=== PATIENT | male | born 1960 | race American Indian/Alaskan Native ===

== ENCOUNTER 2023-10-15 19:53 | Inpatient (IN) | payer MEDICARE ==
--- NOTE | 2023-10-15 21:30 | ED ---
Abdominal Pain HPI - General Chief Complaint: Abdominal Pain Stated Complaint: abd pain Time Seen by Provider: 10/15/23 20:08 Source: patient, family Mode of arrival: wheelchair Limitations: no limitations - History of Present Illness Initial Comments: 63-year-old male with medical history significant for disease status post 5 vessel CABG, hypertension, robotic hiatal hernia cancer currently in remission, presenting to the ED with a chief complaint of abdominal pain. Patient was initially seen 3 days ago at [facility] in [place]. Patient is from [place]. He was there for a [place] hockey tournament. During the ride there he was started to experience some nausea and belching. On 05/27 he reports he was celebrating with his family and drank approximately 15 beers. The following morning on 10/13/2023 woke up with abdominal pain in the epigastric region with some associated nausea and vomiting. Had no changes in bowel habits at this time. No chest pain, shortness of breath, fever, or chills at this time as well. At this time laboratory studies were significant for an elevated lipase at 2655, AST of 449, ALT of 149, and ALP of 138. He did also have an elevated creatinine at 126 however his estimated GFR was 55. White blood cell count was elevated at 12.3. Patient had CT scan showing peripancreatic stranding and fluid likely related to acute interstitial edematous pancreatitis. CT also revealed gallbladder distention with mild gallbladder wall thickening favored to be reactive. Ultrasound at this time had findings suggestive of acute cholecystitis with dilation of the common bile duct. There is no definitive choledocholithiasis within the visualized common bile duct. Patient was admitted and was to have an MRCP however patient did have a medical clip within his abdomen and was unable to determine at this time whether or not this clip was compatible with MRCP therefore this was held. Due to patient being from [place], requested discharge so that he may have evaluation in the [place] where his insurance would provide coverage. At this time patient reports continued abdominal pain. He does not report any worsening of this. No nausea or vomiting. He has been on a clear liquid diet. Denies fever or chills. No chest pain or shortness of breath. No other complaints at this time. - Related Data Allergies Allergy/AdvReac Type Severity Reaction Status Date / Time No Known Allergies Allergy Verified 10/15/23 21:53 Review of Systems ROS Statement: Those systems with pertinent positive or pertinent negative responses have been documented in the HPI. ROS Other: All systems not noted in ROS Statement are negative. Past Medical History Past Medical History: Cancer, Hypertension Additional Past Medical History / Comment(s): prostate cancer, hiatal hernia History of Any Multi-Drug Resistant Organisms: None Reported Past Surgical History: Prostate Surgery Additional Past Surgical History / Comment(s): bipass Smoking Status: Never smoker Past Alcohol Use History: None Reported Past Drug Use History: None Reported General Exam Limitations: no limitations General appearance: alert, in no apparent distress ENT exam: Present: mucous membranes moist Neck exam: Present: normal inspection Respiratory exam: Present: normal lung sounds bilaterally Cardiovascular Exam: Present: regular rate, normal rhythm GI/Abdominal exam: Present: soft (Epigastric tenderness to palpation. No rebound guarding or rigidity. No May Strange sign. No [place] sign.) Back exam: Present: normal inspection Neurological exam: Present: alert, oriented X3 Skin exam: Present: warm, dry Course Vital Signs 10/15/23 10/15/23 10/15/23 19:56 22:07 23:00 Temperature 97.8 F 98.1 F Pulse Rate 68 78 83 Respiratory 18 16 18 Rate Blood Pressure 146/83 164/92 139/94 O2 Sat by Pulse 98 95 95 Oximetry Medical Decision Making - Medical Decision Making Was pt. sent in by a medical professional or institution (, [place], SILK FOLDER, urgent care, hospital, or intermediate...) When possible be specific @ -No Did you speak to anyone other than the patient for history (EMS, parent, family, police, friend...)? What history was obtained from this source @ -No Did you review nursing and triage notes (agree or disagree)? Why? @ -I reviewed and agree with nursing and triage notes Were old charts reviewed (outside hosp., previous admission, EMS record, old EKG, old radiological studies, urgent care reports/EKG's, intermediate records)? Report findings @ -Chart from outside hospital reviewed. For further details please see HPI. Differential Diagnosis (chest pain, altered mental status, abdominal pain women, abdominal pain men, vaginal bleeding, weakness, fever, dyspnea, syncope, headache, dizziness, GI bleed, back pain, seizure, CVA, palpatations, mental health, musculoskeletal)? @ -Differential Abdominal Pain Men: Appendicitis, cholecystitis, diverticulosis, ischemic bowel, pancreatitis, hepatitis, UTI, gastroenteritis, AAA, incarcerated hernia, bowel obstruction, constipation, inflammatory bowel, hepatitis, peptic ulcer disease, splenic i nfarction, perforated viscus, testicular torsion, this is not meant to be an all-inclusive list EKG interpreted by me (3pts min.). @ -None X-rays interpreted by me (1pt min.). @ -None done CT interpreted by me (1pt min.). @ -CT abdomen pelvis interpreted me with findings consistent with persistent acute edematous pancreatitis. U/S interpreted by me (1pt. min.). @ -Gallbladder ultrasound interpreted me which showed small dependent gallstones and gallbladder sludge without evidence of acute cholecystitis. Common bile duct within normal limits at this time. What testing was considered but not performed or refused? (CT, X-rays, U/S, labs)? Why? @ -None What meds were considered but not given or refused? Why? @ -None Did you discuss the management of the patient with other professionals (professionals i.e. , PA, SILK FOLDER, lab, RT, psych nurse, social work supervisor, frame bender, teacher, radiation safety officer, patient case manager)? Give summary @ -Case discussed with Kathie ramsay [facility] who accepts admission. Was smoking cessation discussed for >3mins.? @ -No Was critical care preformed (if so, how long)? @ -No Were there social determinants of health that impacted care today? How? (Homelessness, low income, unemployed, alcoholism, drug addiction, transportation, low edu. Level, literacy, decrease access to med. care, senior care, rehab)? @ -No Was there de-escalation of care discussed even if they declined (Discuss DNR or withdrawal of care, Hospice)? DNR status @ -No What co-morbidities impacted this encounter? (DM, HTN, Smoking, COPD, CAD, Cancer, CVA, ARF, Chemo, Hep., AIDS, mental health diagnosis, sleep apnea, morb id obesity)? @ -None Was patient admitted / discharged? Hospital course, mention meds given and rou te, prescriptions, significant lab abnormalities, going to OR and other pertinent info. @ -Admission 63-year-old male presented to the ED with chief complaint of abdominal pain. Previously seen in [place] 3 days ago with complaints of abdominal pain. At this time diagnosed with pancreatitis and was admitted however today requested discharge as patient is an [place] and his health insurance does not cover care in [place] and wanted to come to the [place] for further treatment. Patient upon presentation today notes continued abdominal pain. Denies any worsening of this. No nausea or vomiting. No fever. Upon examination, epigastric tenderness to palpation. No bruising noted to the abdomen or to the flanks. Laboratory studies reviewed. CBC largely unremarkable. Chemistry panel significant for an elevated bilirubin at 2.5. AST 342, ALT 462, alk phos 228, amylase of 286. Lipase of 2536. Urinalysis largely unremarkable. Patient will be admitted with consult to gastroenterology. Patient NPO. Undiagnosed new problem with uncertain prognosis? @ -No Drug Therapy requiring intensive monitoring for toxicity (Heparin, Nitro, Insulin, Cardizem)? @ -No Were any procedures done? @ -No Diagnosis/symptom? @ -Admission Acute, or Chronic, or Acute on Chronic? @ -Acute Uncomplicated (without systemic symptoms) or Complicated (systemic symptoms)? @ -Complicated Side effects of treatment? @ -No Exacerbation, Progression, or Severe Exacerbation? @ -No Poses a threat to life or bodily function? How? (Chest pain, USA, PR, pneumonia, PE, COPD, DKA, ARF, appy, cholecystitis, CVA, Diverticulitis, Homicidal, Suicidal, threat to staff... and all critical care pts) @ -Possibly however unlikely - Lab Data Result diagrams: 10/15/23 21:17 10/15/23 21:17 Lab Results 10/15/23 10/15/23 10/15/23 Range/Units 21:17 21:17 21:17 WBC 5.8 (3.8-10.6) k/uL RBC 4.07 L (4.30-5.90) m/uL Hgb 11.2 L (13.0-17.5) gm/dL Hct 33.7 L (39.0-53.0) % MCV 82.8 (80.0-100.0) fL MCH 27.4 (25.0-35.0) pg MCHC 33.1 (31.0-37.0) g/dL RDW 13.9 (11.5-15.5) % Plt Count 185 (150-450) k/uL MPV 8.7 Neutrophils % 82 % Lymphocytes % 7 % Monocytes % 5 % Eosinophils % 2 % Basophils % 1 % Neutrophils # 4.7 (1.3-7.7) k/uL Lymphocytes # 0.4 L (1.0-4.8) k/uL Monocytes # 0.3 (0-1.0) k/uL Eosinophils # 0.1 (0-0.7) k/uL Basophils # 0.0 (0-0.2) k/uL Sodium 132 L (137-145) mmol/L Potassium 4.1 (3.5-5.1) mmol/L Chloride 104 (98-107) mmol/L Carbon Dioxide 20 L (22-30) mmol/L Anion Gap 8 mmol/L BUN 20 (9-20) mg/dL Creatinine 0.95 (0.66-1.25) mg/dL Est GFR (CKD-EPI)AfAm >90 (>60 ml/min/1.73 sqM) Est GFR (CKD-EPI)NonAf 84 (>60 ml/min/1.73 sqM) Glucose 117 H (74-99) mg/dL Plasma Lactic Acid Orlando 1.3 (0.7-2.0) mmol/L Calcium 8.5 (8.4-10.2) mg/dL Total Bilirubin 2.5 H (0.2-1.3) mg/dL AST 342 H (17-59) U/L ALT 462 H (4-49) U/L Alkaline Phosphatase 228 H (38-126) U/L Total Protein 5.8 L (6.3-8.2) g/dL Albumin 3.1 L (3.5-5.0) g/dL Amylase 286 H (30-110) U/L Lipase 2536 H (23-300) U/L Urine Color Urine Appearance (Clear) Urine pH (5.0-8.0) Ur Specific Rufus (1.001-1.035) Urine Protein (Negative) Urine Glucose (UA) (Negative) Urine Ketones (Negative) Urine Blood (Negative) Urine Nitrite (Negative) Urine Bilirubin (Negative) Urine Urobilinogen (<2.0) mg/dL Ur Leukocyte Esterase (Negative) Urine RBC (0-5) /hpf Urine WBC (0-5) /hpf Urine Bacteria (None) /hpf Urine Mucus (None) /hpf 10/15/23 Range/Units 21:37 WBC (3.8-10.6) k/uL RBC (4.30-5.90) m/uL Hgb (13.0-17.5) gm/dL Hct (39.0-53.0) % MCV (80.0-100.0) fL MCH (25.0-35.0) pg MCHC (31.0-37.0) g/dL RDW (11.5-15.5) % Plt Count (150-450) k/uL MPV Neutrophils % % Lymphocytes % % Monocytes % % Eosinophils % % Basophils % % Neutrophils # (1.3-7.7) k/uL Lymphocytes # (1.0-4.8) k/uL Monocytes # (0-1.0) k/uL Eosinophils # (0-0.7) k/uL Basophils # (0-0.2) k/uL Sodium (137-145) mmol/L Potassium (3.5-5.1) mmol/L Chloride (98-107) mmol/L Carbon Dioxide (22-30) mmol/L Anion Gap mmol/L BUN (9-20) mg/dL Creatinine (0.66-1.25) mg/dL Est GFR (CKD-EPI)AfAm (>60 ml/min/1.73 sqM) Est GFR (CKD-EPI)NonAf (>60 ml/min/1.73 sqM) Glucose (74-99) mg/dL Plasma Lactic Acid Orlando (0.7-2.0) mmol/L Calcium (8.4-10.2) mg/dL Total Bilirubin (0.2-1.3) mg/dL AST (17-59) U/L ALT (4-49) U/L Alkaline Phosphatase (38-126) U/L Total Protein (6.3-8.2) g/dL Albumin (3.5-5.0) g/dL Amylase (30-110) U/L Lipase (23-300) U/L Urine Color Dark Yellow Urine Appearance Clear (Clear) Urine pH 6.0 (5.0-8.0) Ur Specific Rufus 1.028 (1.001-1.035) Urine Protein 2+ H (Negative) Urine Glucose (UA) Negative (Negative) Urine Ketones Negative (Negative) Urine Blood Small H (Negative) Urine Nitrite Negative (Negative) Urine Bilirubin 2+ H (Negative) Urine Urobilinogen 2.0 (<2.0) mg/dL Ur Leukocyte Esterase Negative (Negative) Urine RBC <1 (0-5) /hpf Urine WBC 5 (0-5) /hpf Urine Bacteria Rare H (None) /hpf Urine Mucus Rare H (None) /hpf Disposition Clinical Impression: Pancreatitis Disposition: ADMITTED IP TO [facility] Condition: Good Referrals: None,Stated [Primary Care Provider] - 1-2 days Time of Disposition: 23:15
[2023-10-15 21:46] LABS: Basophils % (A) 1 %; Eosinophils # (A) 0.1 k/uL (0-0.7); Eosinophils % (A) 2 %; HCT 33.7 % (39.0-53.0); HGB 11.2 gm/dL (13.0-17.5); Lymphocytes # (A) 0.4 k/uL (1.0-4.8); Lymphocytes % (A) 7 %; MCH 27.4 pg (25.0-35.0); MCHC 33.1 g/dL (31.0-37.0); MCV 82.8 fL (80.0-100.0); Mean Platelet Volume 8.7; Monocytes # (A) 0.3 k/uL (0-1.0); Monocytes % (A) 5 %; Neutrophils # (A) 4.7 k/uL (1.3-7.7); Neutrophils % (A) 82 %; Platelet Count 185 k/uL (150-450); RBC 4.07 m/uL (4.30-5.90); RDW 13.9 % (11.5-15.5); WBC 5.8 k/uL (3.8-10.6)
[2023-10-15] MEDS: HYDROmorphone 1 MG/ML 1 ML SYRINGE IVP STA (21:54)
[2023-10-15] MEDS: SODIUM CHLORIDE 0.9% 1,000 ML IV STA (21:55)
[2023-10-15 22:00] LABS: ALT 462 U/L (4-49); AST 342 U/L (17-59); African American GFR (CKD) >90 (>60 ml/min/1.73 sqM); Albumin 3.1 g/dL (3.5-5.0); Alkaline Phosphatase 228 U/L (38-126); Amylase 286 U/L (30-110); Anion Gap 8 mmol/L; Blood Urea Nitrogen 20 mg/dL (9-20); Calcium 8.5 mg/dL (8.4-10.2); Carbon Dioxide 20 mmol/L (22-30); Chloride 104 mmol/L (98-107); Glucose 117 mg/dL (74-99); Non-African American GFR(CKD) 84 (>60 ml/min/1.73 sqM); Potassium 4.1 mmol/L (3.5-5.1); Sodium 132 mmol/L (137-145); Total Bilirubin 2.5 mg/dL (0.2-1.3); Total Protein 5.8 g/dL (6.3-8.2)
--- NOTE | 2023-10-15 22:14 | US ---
EXAMINATION TYPE: US gallbladder DATE OF EXAM: 10/15/2023 COMPARISON: NONE CLINICAL INDICATION: Male, 63 years old with history of hx edematous pancreatitis; pancreatitis TECHNIQUE: Multiple sonographic images of the right upper quadrant are obtained. FINDINGS: EXAM MEASUREMENTS: Liver Length: 15.9 cm Gallbladder Wall: 0.2 cm CBD: 0.4 cm Right Kidney: 11.7 x 5.4 x 5.4 cm DRYWALL FOREMAN NOTES: Pancreas: Obscured by bowel gas Liver: Heterogeneously hyperechoic Gallbladder: Hypoechoic layer seen without vascularity, appears to have distended margins. Evidence for sonographic Stroud's sign: No CBD: wnl Right Kidney: wnl Suboptimal evaluation of pancreas on the initial images due to overlying bowel gas per technologist. IMPRESSION: Suboptimal evaluation of pancreas. There are small dependent gallstones and/or gallbladde r sludge without secondary ultrasound evidence for acute cholecystitis.
[2023-10-15 22:16] LABS: Appearance,Urine Clear (Clear); Bacteria,Urine Rare /hpf; Bilirubin,Urine 2+ (Negative); Blood,Urine Small (Negative); Color,Urine Dark Yellow; Glucose,Urine (UA) Negative (Negative); Ketones,Urine Negative (Negative); Leukocyte Esterase,Urine Negative (Negative); Mucus,Urine Rare /hpf; Nitrite,Urine Negative (Negative); Protein,Urine 2+ (Negative); RBC,Urine <1 /hpf (0-5); Specific Gravity,Urine 1.028 (1.001-1.035); WBC,Urine 5 /hpf (0-5)
[2023-10-15 22:24] LABS: Lipase 2536 U/L (23-300)
--- NOTE | 2023-10-15 23:01 | CT ---
EXAMINATION TYPE: CT abdomen pelvis w con DATE OF EXAM: 10/15/2023 COMPARISON: Same day gallbladder ultrasound HISTORY: pt arrives to ED for c/o RUQ pain. hx of edematous pancreatitis. dx [address] DLP: 1225.2 mGycm, Automated Exposure Control for Dose Reduction was Utilized. CONTRAST: CT scan of the abdomen and pelvis is performed with oral and with IV Contrast, patient injected with 100 mL of Isovue 370. FINDINGS: LUNG BASES: Overlying Sternal wires are partially imaged. Mild cardiomegaly. Trace bilateral pleural effusions with associated compressive atelectasis LIVER/GB: Gallbladder has distended margins with mild adjacent fluid or edematous wall thickening not clearly seen on recent ultrasound. No biliary dilatation. Dependent small stones and/or gallbladder sludge is identified correlating with earlier ultrasound. PANCREAS: Mild to moderate surrounding ill-defined fluid of the pancreas with mild overall prominence . No ductal dilatation or glanular calcifications. No well-formed fluid collection. SPLEEN: No significant abnormality is seen. ADRENALS: No significant abnormality is seen. KIDNEYS: No significant abnormality is seen. BOWEL: No significant abnormality is seen. PROSTATE/SEMINAL VESICLES: No gross abnormality seen. LYMPH NODES: No greater than 1cm abdominal or pelvic lymph nodes are appreciated. OSSEOUS STRUCTURES: Moderate to severe disc space narrowing with vacuum disc phenomenon at the lumbos acral junction. OTHER: Mild to moderate peripheral calcified plaque of the aorta extends into branch vessels. IMPRESSION: CT findings support diagnosis of persistent acute edematous pancreatitis. Acute cholecyst itis cannot be entirely excluded on CT. Consider HIDA scan follow-up based on clinical correlation.
[2023-10-15] MEDS ORDERED: IBUPROFEN 400 MG TAB PO PRN (23:41)
[2023-10-15] MEDS ORDERED: ONDANSETRON 4 MG/2 ML VIAL IVP PRN (23:41)
[2023-10-15] MEDS ORDERED: NALOXONE 0.4 MG/ML 1 ML VIAL IV PRN (23:41)
[2023-10-16] MEDS: HYDROmorphone 1 MG/ML 1 ML SYRINGE IVP PRN (00:50)
[2023-10-16] MEDS: SODIUM CHLORIDE 0.9% 1,000 ML IV SCH (00:53)
[2023-10-16 09:08] LABS: HCT 30.9 % (39.6-50.0); HGB 9.8 g/dL (13.0-17.0); MCH 25.8 pg (27.0-32.0); MCHC 31.7 g/dL (32.0-37.0); MCV 81.3 FL (80.0-97.0); Mean Platelet Volume 10.9 FL (9.5-12.2); NRBC Per 100 WBC 0 X 10*3/uL (0.00-0.01); Platelet Count 202 X 10*3/uL (140-440); WBC 6.03 X 10*3/uL (4.50-10.00)
[2023-10-16 09:22] LABS: ALT 371 U/L (10-49); AST 201 U/L (14-35); Albumin 3.3 g/dL (3.8-4.9); Albumin/Globulin Ratio 1.74 Ratio (1.60-3.17); Alkaline Phosphatase 228 U/L (41-126); Amylase 201 U/L (23-121); BUN/Creat Ratio 15.89 Ratio (12.00-20.00); Blood Urea Nitrogen 14.3 mg/dL (9.0-27.0); Calcium 8.8 mg/dL (8.7-10.3); Carbon Dioxide 23.5 mmol/L (21.6-31.8); Chloride 103 mmol/L (96-109); Globulin 1.9 g/dL (1.6-3.3); Glucose 102 mg/dL (70-110); Potassium 4.5 mmol/L (3.5-5.5); Sodium 134 mmol/L (135-145); Total Bilirubin 1.9 mg/dL (0.3-1.2); Total Protein 5.2 g/dL (6.2-8.2)
[2023-10-16 09:32] LABS: Lipase 450 U/L (14-60)
[2023-10-16 09:41] LABS: Basophils # (A) 0.04 X 10*3/uL (0.00-0.10); Basophils % (A) 0.7 %; Eosinophils # (A) 0.21 X 10*3/uL (0.04-0.35); Eosinophils % (A) 3.5 %; Lymphocytes # (A) 0.54 X 10*3/uL (0.90-5.00); Monocytes % (A) 8.3 %; Neutrophils # (A) 4.71 X 10*3/uL (1.80-7.70); RBC Morphology Normal (Normal)
--- NOTE | 2023-10-16 11:31 | P.GSCN ---
History of Present Illness Consult date: 10/16/23 History of present illness: CHIEF COMPLAINT: Abdominal pain HISTORY OF PRESENT ILLNESS: This is a 63-year-old male who presented to the hospital with complaints of epigastric and right upper quadrant abdominal pain that started 4 days ago. Patient has been having dry heaves and nausea. Patient reports initially he was in [place] for his grandsons hockey tournament. Patient reports on Friday evening they had a family gathering where he drank multiple beers. Friday morning patient had epigastric and right upper quadrant abdominal pain. He initially went to the hospital in [place] and was diagnosed with pancreatitis. Patient reports no prior history of pancreatitis. Patient [place] due to insurance reasons. Patient continues to have abdominal pain. He had a CT scan abdomen and pelvis that reported persistent acute edematous pancreatitis. Acute cholecystitis cannot totally be excluded. Abdominal ultrasound completed that reported small dependent gallstones and/or gallbladder sludge without secondary ultrasound evidence for acute cholecystitis. Patient did have elevated total bilirubin and liver enzymes and lipase. GI service is on consult. Patient does have a cardiac history of CABG and cardiac stents. Last dose of Plavix October 12. PAST MEDICAL HISTORY: Prostate cancer, hiatal hernia PAST SURGICAL HISTORY: CABG 2021, hiatal hernia repair and 2021 at [facility], prostate surgery at [facility] in 2016 MEDICATIONS: See below ALLERGIES: See below SOCIAL HISTORY: No illicit drug use. REVIEW OF SYSTEMS: CONSTITUTIONAL: Denies fever or chills. HEENT: Denies blurred vision, vision changes, or eye pain. Denies hemoptysis CARDIOVASCULAR: Denies chest pain or pressure. RESPIRATORY: No shortness of breath. GASTROINTESTINAL: See HPI for pertinent findings HEMATOLOGIC: Denies bleeding disorders. GENITOURINARY: Denies any blood in urine or increased urinary frequency. SKIN: Denies pruitis. Denies rash. PHYSICAL EXAM: VITAL SIGNS: Reviewed GENERAL: Well-developed in no acute distress. HEENT: No sclera icterus. Extraocular movements grossly intact. Moist buccal mucosa. Head is atraumatic, normocephalic. No nasal drainage. ABDOMEN: Soft. Nondistended. Tenderness with palpation of the right upper quadrant and epigastric area NEUROLOGIC: Alert and oriented. Cranial nerves II through XII grossly intact. LABORATORY DATA: WBC 6.03 Hgb 9.8 platelets 202 Sodium 134 potassium 4.5 creatinine 0.9 Total bilirubin down from 2.5-1.9 AST 342 down to 201 ALT 462 down to 371 alk phos 228 lipase is down from 2536-450 IMAGING: CT scan abdomen and pelvis reports findings support diagnosis of persistent acute edematous pancreatitis. Acute cholecystitis cannot be excluded. Gallbladder ultrasound reports suboptimal evaluation of the pancreas. There is small dependent gallstones and/or gallbladder sludge without secondary ultrasound evidence for acute cholecystitis. ASSESSMENT: 1. Acute pancreatitis possibly related to both gallstones and EtOH use 2. Elevated LFTs and total bilirubin. Possible choledocholithiasis PLAN: -Awaiting further recommendations per GI service regarding possible ERCP -Further recommendations forthcoming per surgeon -Keep patient n.p.o. -Continue IV fluids -Continue pain management Physician Entertainment Manager note has been reviewed by physician. Signing provider agrees with the documented findings, assessment, and plan of care. I have personally seen and examined the patient, reviewed the MACHINE STRIPER /PAs history, exam and MDM and agree with the assessment and plan as written. Based on total visit time, I have performed more than 50% of the visit. As above: Patient with suspected gallstone pancreatitis. Plans currently for ERCP tomorrow. May resume liquid diet today. Empiric antibiotics at this time. Will follow. Past Medical History Past Medical History: Cancer, Hypertension Additional Past Medical History / Comment(s): prostate cancer, hiatal hernia History of Any Multi-Drug Resistant Organisms: None Reported Past Surgical History: Prostate Surgery Additional Past Surgical History / Comment(s): bipass Past Anesthesia/Blood Transfusion Reactions: No Reported Reaction Smoking Status: Never smoker Past Alcohol Use History: None Reported Past Drug Use History: None Reported Medications and Allergies Home Medications Medication Instructions Recorded Confirmed Type Aspirin EC [Ecotrin Low Dose] 81 mg PO DAILY 10/16/23 10/16/23 History Calcium Carbonate [Tums] 500 mg PO TID PRN 10/16/23 10/16/23 History Cetirizine HCl [Zyrtec] 10 mg PO DAILY 10/16/23 10/16/23 History Clopidogrel [Plavix] 75 mg PO DAILY 10/16/23 10/16/23 History Pantoprazole Sodium [Protonix] 40 mg PO BID 10/16/23 10/16/23 History Rosuvastatin Calcium [Crestor] 40 mg PO HS 10/16/23 10/16/23 History Zinc Gluconate [Zinc] 50 mg PO DAILY 10/16/23 10/16/23 History allopurinoL [Zyloprim] 100 mg PO DAILY 10/16/23 10/16/23 History carvediloL [Coreg] 12.5 mg PO BID 10/16/23 10/16/23 History lisinopriL [Zestril] 20 mg PO DAILY 10/16/23 10/16/23 History Allergies Allergy/AdvReac Type Severity Reaction Status Date / Time No Known Allergies Allergy Verified 10/16/23 07:30 Surgical - Exam Vital Signs Temp Pulse Resp BP Pulse Ox 97.8 F 68 18 146/83 98 10/15/23 19:56 10/15/23 19:56 10/15/23 19:56 10/15/23 19:56 10/15/23 19:56 Results - Labs 10/16/23 05:17 10/16/23 05:17 Abnormal Lab Results - Last 24 Hours (Table) 10/15/23 10/15/23 10/15/23 Range/Units 21:17 21:17 21:37 RBC 4.07 L (4.30-5.90) m/uL Hgb 11.2 L (13.0-17.5) gm/dL Hct 33.7 L (39.0-53.0) % MCH (27.0-32.0) pg MCHC (32.0-37.0) g/dL Lymphocytes # 0.4 L (1.0-4.8) k/uL Sodium 132 L (137-145) mmol/L Carbon Dioxide 20 L (22-30) mmol/L Glucose 117 H (74-99) mg/dL Total Bilirubin 2.5 H (0.2-1.3) mg/dL AST 342 H (17-59) U/L ALT 462 H (4-49) U/L Alkaline Phosphatase 228 H (38-126) U/L Total Protein 5.8 L (6.3-8.2) g/dL Albumin 3.1 L (3.5-5.0) g/dL Amylase 286 H (30-110) U/L Lipase 2536 H (23-300) U/L Urine Protein 2+ H (Negative) Urine Blood Small H (Negative) Urine Bilirubin 2+ H (Negative) Urine Bacteria Rare H (None) /hpf Urine Mucus Rare H (None) /hpf 10/16/23 10/16/23 Range/Units 05:17 05:17 RBC 3.80 L (4.30-5.90) m/uL Hgb 9.8 L (13.0-17.5) gm/dL Hct 30.9 L (39.0-53.0) % MCH 25.8 L (27.0-32.0) pg MCHC 31.7 L (32.0-37.0) g/dL Lymphocytes # 0.54 L (1.0-4.8) k/uL Sodium 134 L (137-145) mmol/L Carbon Dioxide (22-30) mmol/L Glucose (74-99) mg/dL Total Bilirubin 1.9 H (0.2-1.3) mg/dL AST 201 H (17-59) U/L ALT 371 H (4-49) U/L Alkaline Phosphatase 228 H (38-126) U/L Total Protein 5.2 L (6.3-8.2) g/dL Albumin 3.3 L (3.5-5.0) g/dL Amylase 201 H (30-110) U/L Lipase 450 H (23-300) U/L Urine Protein (Negative) Urine Blood (Negative) Urine Bilirubin (Negative) Urine Bacteria (None) /hpf Urine Mucus (None) /hpf Diabetes panel 10/15/23 10/16/23 Range/Units 21:17 05:17 Sodium 132 L 134 L (137-145) mmol/L Potassium 4.1 4.5 (3.5-5.1) mmol/L Chloride 104 103 (98-107) mmol/L Carbon Dioxide 20 L 23.5 (22-30) mmol/L BUN 20 14.3 (9-20) mg/dL Creatinine 0.95 0.9 (0.66-1.25) mg/dL Glucose 117 H 102 (74-99) mg/dL Calcium 8.5 8.8 (8.4-10.2) mg/dL AST 342 H 201 H (17-59) U/L ALT 462 H 371 H (4-49) U/L Alkaline Phosphatase 228 H 228 H (38-126) U/L Total Protein 5.8 L 5.2 L (6.3-8.2) g/dL Albumin 3.1 L 3.3 L (3.5-5.0) g/dL Calcium panel 10/15/23 10/16/23 Range/Units 21:17 05:17 Calcium 8.5 8.8 (8.4-10.2) mg/dL Albumin 3.1 L 3.3 L (3.5-5.0) g/dL Pituitary panel 10/15/23 10/16/23 Range/Units 21:17 05:17 Sodium 132 L 134 L (137-145) mmol/L Potassium 4.1 4.5 (3.5-5.1) mmol/L Chloride 104 103 (98-107) mmol/L Carbon Dioxide 20 L 23.5 (22-30) mmol/L BUN 20 14.3 (9-20) mg/dL Creatinine 0.95 0.9 (0.66-1.25) mg/dL Glucose 117 H 102 (74-99) mg/dL Calcium 8.5 8.8 (8.4-10.2) mg/dL Adrenal panel 10/15/23 10/16/23 Range/Units 21:17 05:17 Sodium 132 L 134 L (137-145) mmol/L Potassium 4.1 4.5 (3.5-5.1) mmol/L Chloride 104 103 (98-107) mmol/L Carbon Dioxide 20 L 23.5 (22-30) mmol/L BUN 20 14.3 (9-20) mg/dL Creatinine 0.95 0.9 (0.66-1.25) mg/dL Glucose 117 H 102 (74-99) mg/dL Calcium 8.5 8.8 (8.4-10.2) mg/dL Total Bilirubin 2.5 H 1.9 H (0.2-1.3) mg/dL AST 342 H 201 H (17-59) U/L ALT 462 H 371 H (4-49) U/L Alkaline Phosphatase 228 H 228 H (38-126) U/L Total Protein 5.8 L 5.2 L (6.3-8.2) g/dL Albumin 3.1 L 3.3 L (3.5-5.0) g/dL
--- NOTE | 2023-10-16 12:48 | P.CONS ---
History of Present Illness - Reason for Consult Consult date: 10/16/23 Pancreatitis Requesting physician: Nakul Garcia - Chief Complaint Abdominal pain - History of Present Illness This is a pleasant 63-year-old male who presented to the emergency department with complaints of epigastric and right upper quadrant pain. He states the pain started on Friday and was accompanied by nausea and vomiting. At the time he was in [place] and he went to the emergency department for evaluation. He states that he was told that he had pancreatitis he was admitted overnight. He was then discharged and stayed in [place] until yesterday when he came back to this area he came into the emergency department for further evaluation. He states that they told him he did not have gallstones but that he did have pancreatitis. He denies any previous history of pancreatitis, no history of liver disease. States abdominal pain is improved from Friday but he still has quite a bit of discomfort in the right upper quadrant. Admitting labs: WBC 5.8 hemoglobin 11 platelet count 185,000 sodium 132 potassium 4.1 BUN 20 creatinine 0.95 total bilirubin 2.5 AST 342 ALT 462 alkaline phosphatase 228 amylase 286 lipase 2536. He had a CT of the abdomen and pelvis that reported CT findings support diagnosis of persistent acute edematous pancreatitis. Acute cholecystitis cannot be entirely excluded on CT. Consider HIDA scan follow-up based on clinical correlation. Ultrasound of the gallbladder was also completed that reported diet normal common bile duct, small dependent gallstones and/or gallbladder sludge without secondary ultrasound evidence for acute cholecystitis. Heterogeneously hyperechoic liver Review of Systems REVIEW OF SYSTEMS: CARDIOPULMONARY: No chest pain or shortness of breath. Gastrointestinal: Right upper quadrant and epigastric pain. No nausea or vomiting. No hematemesis, coffee-ground emesis. No rectal bleeding, or melena. GENITOURINARY: No dysuria or hematuria. MUSCULOSKELETAL: Reports normal range of motion., Joint pain. SKIN: No rashes. No jaundice. ENDOCRINE: No chills, fevers. No excessive weight gain or loss. No polydipsia or polyuria. PSYCHIATRIC: Unremarkable. NEUROLOGY: No change in mental status. Denies dizziness, headache. ENT: Vision unremarkable. CONSTITUTIONAL: No recent weight loss. No fever, chills, night sweats. Past Medical History Past Medical History: Cancer, Hypertension Additional Past Medical History / Comment(s): prostate cancer, hiatal hernia History of Any Multi-Drug Resistant Organisms: None Reported Past Surgical History: Prostate Surgery Additional Past Surgical History / Comment(s): bipass Past Anesthesia/Blood Transfusion Reactions: No Reported Reaction Smoking Status: Never smoker Past Alcohol Use History: None Reported Past Drug Use History: None Reported Medications and Allergies Home Medications Medication Instructions Recorded Confirmed Type Aspirin EC [Ecotrin Low Dose] 81 mg PO DAILY 10/16/23 10/16/23 History Calcium Carbonate [Tums] 500 mg PO TID PRN 10/16/23 10/16/23 History Cetirizine HCl [Zyrtec] 10 mg PO DAILY 10/16/23 10/16/23 History Clopidogrel [Plavix] 75 mg PO DAILY 10/16/23 10/16/23 History Pantoprazole Sodium [Protonix] 40 mg PO BID 10/16/23 10/16/23 History Rosuvastatin Calcium [Crestor] 40 mg PO HS 10/16/23 10/16/23 History Zinc Gluconate [Zinc] 50 mg PO DAILY 10/16/23 10/16/23 History allopurinoL [Zyloprim] 100 mg PO DAILY 10/16/23 10/16/23 History carvediloL [Coreg] 12.5 mg PO BID 10/16/23 10/16/23 History lisinopriL [Zestril] 20 mg PO DAILY 10/16/23 10/16/23 History Allergies Allergy/AdvReac Type Severity Reaction Status Date / Time No Known Allergies Allergy Verified 10/16/23 07:30 Physical Exam Vitals: Vital Signs Temp Pulse Pulse Resp BP BP Pulse Ox 10/16/23 00:26 98.1 F 81 18 165/91 94 L 10/16/23 00:21 81 18 10/15/23 23:00 98.1 F 83 18 139/94 95 10/15/23 22:07 78 16 164/92 95 10/15/23 19:56 97.8 F 68 18 146/83 98 Intake and Output 10/15/23 10/15/23 10/16/23 14:59 22:59 06:59 Output Total 425 Balance -425 Output: Urine 425 Other: Voiding Method Toilet Weight 77.111 kg 77.111 kg General appearance: The patient is alert, oriented, appears in no acute distress. HET: Head is normocephalic and atraumatic. Conjunctiva pink. Sclera anicteric. Neck: Supple without lymphadenopathy. Trachea midline. Heart: Regular. Lungs: Equal expansion, normal respiratory effort. Abdomen: Soft, right upper quadrant and epigastric tenderness to palpation, nondistended. Skin: No rashes. No jaundice. Extremities: Normal skin color and turgor. No pedal edema. Neurological: No focal deficits. Alert and oriented x3. Results CBC & Chem 7: 10/16/23 05:17 10/16/23 05:17 Labs: Abnormal Lab Results - Last 24 Hours (Table) 10/15/23 10/15/23 10/15/23 Range/Units 21:17 21:17 21:37 RBC 4.07 L (4.30-5.90) m/uL Hgb 11.2 L (13.0-17.5) gm/dL Hct 33.7 L (39.0-53.0) % Lymphocytes # 0.4 L (1.0-4.8) k/uL Sodium 132 L (137-145) mmol/L Carbon Dioxide 20 L (22-30) mmol/L Glucose 117 H (74-99) mg/dL Total Bilirubin 2.5 H (0.2-1.3) mg/dL AST 342 H (17-59) U/L ALT 462 H (4-49) U/L Alkaline Phosphatase 228 H (38-126) U/L Total Protein 5.8 L (6.3-8.2) g/dL Albumin 3.1 L (3.5-5.0) g/dL Amylase 286 H (30-110) U/L Lipase 2536 H (23-300) U/L Urine Protein 2+ H (Negative) Urine Blood Small H (Negative) Urine Bilirubin 2+ H (Negative) Urine Bacteria Rare H (None) /hpf Urine Mucus Rare H (None) /hpf Comments: CT of the abdomen and pelvis that reported CT findings support diagnosis of persistent acute edematous pancreatitis. Acute cholecystitis cannot be entirely excluded on CT. Consider HIDA scan follow-up based on clinical correlation. Ultrasound of the gallbladder was also completed that reported diet normal common bile duct, small dependent gallstones and/or gallbladder sludge without secondary ultrasound evidence for acute cholecystitis. Heterogeneously hyperechoic liver Assessment and Plan (1) Pancreatitis Narrative/Plan: 63-year-old presenting with elevated LFTs and amylase and lipase with right upper quadrant and epigastric pain. Initially seen in [place] and was told he had pancreatitis. He is unsure of his initial lab results however states he was told that he had pancreatitis but no gallstones. Looks like possibly a gallstone pancreatitis labs are trending down. Patient likely may have passed stone. Will continue to trend LFTs. Treat symptomatically. And consult general surgery. Further recommendations forthcoming based on trending labs inpatient symptoms. May need to consider ERCP for possible choledocholithiasis. Current Visit: Yes Status: Acute Code(s): K85.90 - ACUTE PANCREATITIS WITHOUT NECROSIS OR INFECTION, UNSP SNOMED Code(s): 04303392 Plan: 1. Continue symptomatic and supportive care 2. N.p.o. for MRCP, n.p.o. after midnight 3. Continue pain management 4. Antiemetics as needed 5. Continue daily CBC, CMP 6. Consult to general surgery 7. MRCP ordered 8. Further recommendations forthcoming from gastroenterology based on clinical course. May need to consider possible ERCP tomorrow. Thank you for this consultation, we will continue to follow. Dr. Jakub Ibrahim I agree with the dictator's note, documented as a scribe by Macy Soni.
[2023-10-16] MEDS: lisinopriL 20 MG TAB PO SCH (14:02)
--- NOTE | 2023-10-16 15:03 | P.HPIM ---
History of Present Illness H&P Date: 10/16/23 This is a 63-year-old male with medical history significant for 5 vessel CABG back in 2021, hypertension, prostate cancer with prostatectomy, hiatal hernia, patient is a never smoker reports rare alcohol use. Patient began having significant abdominal discomfort on Friday he was hospitalized in [place] where he was visiting for his grandsons hockey tournament. He did not want to continue with his medical treatment there and left the hospital to come back to the [place] for medical care he was en route to [facility] where the abdominal pain became too great so he stopped and came into the [facility] ER for further evaluation. He does have family that lives in the local area he is from the . His white blood cell count is normal at 5.8, hemoglobin 11.2, sodium 132, BUN of 20, creatinine 0.95. His bilirubin is elevated at 2.5 with elevation in his liver enzymes. Amylase is 286 and lipase is found to be 2536. Had a gallbladder ultrasound done showing suboptimal evaluation of pancreas there are small dependent gallstones and/or gallbladder sludge without secondary ultrasound evidence for acute cholecystitis. A follow-up abdominal pelvis CT is done revealing persistent acute edematous pancreatitis with acute cholecystitis cannot be entirely excluded on CT consider HIDA scan follow-up for based on clinical correlation. There is for a gallbladder stone in the bile duct although not much appreciated on imaging. Patient is scheduled to undergo an ERCP tomorrow once recovered from that he will undergoing cholecystectomy. Patient is currently evaluated on the medical floor he is reporting abdominal discomfort rated 3 out of 10 but much improved from admission. He is receiving supportive care. He does take aspirin and Plavix daily, aspirin will be continued for now and we will hold Plavix until patient is postoperative and cleared by general surgery. REVIEW OF SYSTEMS: CONSTITUTIONAL: No fever, no malaise, no fatigue. HEENT: No recent visual problems or hearing problems. Denied any sore throat. CARDIOVASCULAR: No chest pain, orthopnea, PND, no palpitations, no syncope. PULMONARY: No shortness of breath, no cough, no hemoptysis. GASTROINTESTINAL: No diarrhea, no nausea, no vomiting, no abdominal pain. NEUROLOGICAL: No headaches, no weakness, no numbness. HEMATOLOGICAL: Denies any bleeding or petechiae. GENITOURINARY: Denies any burning micturition, frequency, or urgency. MUSCULOSKELETAL/RHEUMATOLOGICAL: Denies any joint pain, swelling, or any muscle pain. ENDOCRINE: Denies any polyuria or polydipsia. The rest of the 14-point review of systems is negative. PHYSICAL EXAMINATION: GENERAL: The patient is alert and oriented x3, not in any acute distress. Well developed, well nourished. HEENT: Pupils are round and equally reacting to light. EOMI. No scleral icterus. No conjunctival pallor. Normocephalic, atraumatic. No pharyngeal erythema. No thyromegaly. CARDIOVASCULAR: S1 and S2 present. No murmurs, rubs, or gallops. PULMONARY: Chest is clear to auscultation, no wheezing or crackles. ABDOMEN: Soft, nontender, nondistended, normoactive bowel sounds. No palpable organomegaly. MUSCULOSKELETAL: No joint swelling or deformity. EXTREMITIES: No cyanosis, clubbing, or pedal edema. NEUROLOGICAL: Gross neurological examination did not reveal any focal deficits. SKIN: No rashes. Assessment and plan Acute gallstone pancreatitis patient will undergo ERCP tomorrow with GI services and will be scheduled to undergo cholecystectomy once cleared from GI History of 5 vessel coronary bypass back in 2021 maintained on aspirin and Plavix daily discussed with general surgery patient will be resumed on aspirin 81 mg daily and will be holding Plavix until patient is postoperative. Hypertension maintained on lisinopril and carvedilol which has been resumed History of prostate cancer with prostatectomy Hyperlipidemia Never smoker GI prophylaxis DVT prophylaxis Full Code Repeat labs in the AM. Resume aspirin, hold plavix. Check an EKG for preoperative clearance. The impression and plan of care has been dictated by Sonia Fraga Nurse Practitioner as directed. Dr. Kareem MD I have performed a history and physical examination and medical decision making of this patient, discussed the same with the dictator, and agree with the dictators assessment and plan as written, documented as a scribe. Based on total visit time, I have performed more than 50% of this visit. Past Medical History Past Medical History: Cancer, Hypertension Additional Past Medical History / Comment(s): prostate cancer, hiatal hernia History of Any Multi-Drug Resistant Organisms: None Reported Past Surgical History: Prostate Surgery Additional Past Surgical History / Comment(s): bipass Past Anesthesia/Blood Transfusion Reactions: No Reported Reaction Smoking Status: Never smoker Past Alcohol Use History: None Reported Past Drug Use History: None Reported Medications and Allergies Home Medications Medication Instructions Recorded Confirmed Type Aspirin EC [Ecotrin Low Dose] 81 mg PO DAILY 10/16/23 10/16/23 History Calcium Carbonate [Tums] 500 mg PO TID PRN 10/16/23 10/16/23 History Cetirizine HCl [Zyrtec] 10 mg PO DAILY 10/16/23 10/16/23 History Clopidogrel [Plavix] 75 mg PO DAILY 10/16/23 10/16/23 History Pantoprazole Sodium [Protonix] 40 mg PO BID 10/16/23 10/16/23 History Rosuvastatin Calcium [Crestor] 40 mg PO HS 10/16/23 10/16/23 History Zinc Gluconate [Zinc] 50 mg PO DAILY 10/16/23 10/16/23 History allopurinoL [Zyloprim] 100 mg PO DAILY 10/16/23 10/16/23 History carvediloL [Coreg] 12.5 mg PO BID 10/16/23 10/16/23 History lisinopriL [Zestril] 20 mg PO DAILY 10/16/23 10/16/23 History Allergies Allergy/AdvReac Type Severity Reaction Status Date / Time No Known Allergies Allergy Verified 10/16/23 07:30 Physical Exam Vitals: Vital Signs Temp Pulse Pulse Resp BP BP Pulse Ox 10/16/23 07:42 98.4 F 86 18 167/89 94 L 10/16/23 00:26 98.1 F 81 18 165/91 94 L 10/16/23 00:21 81 18 10/15/23 23:00 98.1 F 83 18 139/94 95 10/15/23 22:07 78 16 164/92 95 10/15/23 19:56 97.8 F 68 18 146/83 98 Intake and Output 10/15/23 10/16/23 10/16/23 22:59 06:59 14:59 Output Total 425 Balance -425 Output: Urine 425 Other: Voiding Method Toilet Weight 77.111 kg 77.111 kg Results CBC & Chem 7: 10/16/23 05:17 10/16/23 05:17 Labs: Abnormal Lab Results - Last 24 Hours (Table) 10/15/23 10/15/23 10/15/23 Range/Units 21:17 21:17 21:37 RBC 4.07 L (4.30-5.90) m/uL Hgb 11.2 L (13.0-17.5) gm/dL Hct 33.7 L (39.0-53.0) % MCH (27.0-32.0) pg MCHC (32.0-37.0) g/dL Lymphocytes # 0.4 L (1.0-4.8) k/uL Sodium 132 L (137-145) mmol/L Carbon Dioxide 20 L (22-30) mmol/L Glucose 117 H (74-99) mg/dL Total Bilirubin 2.5 H (0.2-1.3) mg/dL AST 342 H (17-59) U/L ALT 462 H (4-49) U/L Alkaline Phosphatase 228 H (38-126) U/L Total Protein 5.8 L (6.3-8.2) g/dL Albumin 3.1 L (3.5-5.0) g/dL Amylase 286 H (30-110) U/L Lipase 2536 H (23-300) U/L Urine Protein 2+ H (Negative) Urine Blood Small H (Negative) Urine Bilirubin 2+ H (Negative) Urine Bacteria Rare H (None) /hpf Urine Mucus Rare H (None) /hpf 10/16/23 Range/Units 05:17 RBC 3.80 L (4.30-5.90) m/uL Hgb 9.8 L (13.0-17.5) gm/dL Hct 30.9 L (39.0-53.0) % MCH 25.8 L (27.0-32.0) pg MCHC 31.7 L (32.0-37.0) g/dL Lymphocytes # (1.0-4.8) k/uL Sodium (137-145) mmol/L Carbon Dioxide (22-30) mmol/L Glucose (74-99) mg/dL Total Bilirubin (0.2-1.3) mg/dL AST (17-59) U/L ALT (4-49) U/L Alkaline Phosphatase (38-126) U/L Total Protein (6.3-8.2) g/dL Albumin (3.5-5.0) g/dL Amylase (30-110) U/L Lipase (23-300) U/L Urine Protein (Negative) Urine Blood (Negative) Urine Bilirubin (Negative) Urine Bacteria (None) /hpf Urine Mucus (None) /hpf Thrombosis Risk Factor Assmnt - Choose All That Apply Any of the Below Risk Factors Present?: No Other Risk Factors: Yes Each Risk Factor Represents 2 Points: Age 61-74 years Other congenital or acquired thrombophilia - If yes, enter type in comment: No Thrombosis Risk Factor Assessment Total Risk Factor Score: 2 Thrombosis Risk Factor Assessment Level: Low Risk Assessment and Plan Time with Patient: Less than 30
[2023-10-16] MEDS: LEVOFLOXACIN 500MG-D5W PMX 500 MG in DEXTROSE/WATER 1 100ML.BAG IVPB SCH (16:36)
[2023-10-16] MEDS: PANTOPRAZOLE 40 MG TABLET PO SCH (18:01)
[2023-10-16] MEDS: carvediloL 12.5 MG TAB PO SCH (18:01)
[2023-10-17 08:41] LABS: Basophils # (A) 0.04 X 10*3/uL (0.00-0.10); Basophils % (A) 0.5 %; Eosinophils # (A) 0.14 X 10*3/uL (0.04-0.35); Eosinophils % (A) 1.7 %; HGB 9.6 g/dL (13.0-17.0); Lymphocytes % (A) 9.5 %; MCH 25.8 pg (27.0-32.0); MCV 80.6 FL (80.0-97.0); Mean Platelet Volume 10.8 FL (9.5-12.2); Monocytes # (A) 1.04 X 10*3/uL (0.20-1.00); Monocytes % (A) 12.4 %; NRBC Per 100 WBC 0 X 10*3/uL (0.00-0.01); Neutrophils # (A) 6.33 X 10*3/uL (1.80-7.70); Neutrophils % (A) 75.3 %; Platelet Count 196 X 10*3/uL (140-440); RBC 3.72 X 10*6/uL (4.40-5.60)
[2023-10-17 08:57] LABS: Magnesium 1.6 mg/dL (1.5-2.4)
[2023-10-17] MEDS ORDERED: lisinopriL 20 MG TAB PO SCH (09:00)
[2023-10-17 09:10] LABS: Lipase 452 U/L (14-60)
[2023-10-17 09:24] LABS: ALT 240 U/L (10-49); AST 74 U/L (14-35); Albumin/Globulin Ratio 1.67 Ratio (1.60-3.17); Alkaline Phosphatase 260 U/L (41-126); BUN/Creat Ratio 10.71 Ratio (12.00-20.00); Blood Urea Nitrogen 7.5 mg/dL (9.0-27.0); Calcium 8.6 mg/dL (8.7-10.3); Carbon Dioxide 22.4 mmol/L (21.6-31.8); Chloride 102 mmol/L (96-109); Globulin 1.8 g/dL (1.6-3.3); Glucose 97 mg/dL (70-110); Potassium 3.9 mmol/L (3.5-5.5); Sodium 135 mmol/L (135-145); Total Bilirubin 1.7 mg/dL (0.3-1.2); Total Protein 4.8 g/dL (6.2-8.2)
--- NOTE | 2023-10-17 09:30 | P.PN ---
Subjective Progress Note Date: 10/17/23 Principal diagnosis: Transaminitis, pancreatitis This is a pleasant 63-year-old male who presented to the emergency department with complaints of epigastric and right upper quadrant pain. He states the pain started on Friday and was accompanied by nausea and vomiting. At the time he was in [place] and he went to the emergency department for evaluation. He states that he was told that he had pancreatitis he was admitted overnight. He was then discharged and stayed in [place] until yesterday when he came back to this area he came into the emergency department for further evaluation. He states that they told him he did not have gallstones but that he did have pancreatitis. He denies any previous history of pancreatitis, no history of liver disease. States abdominal pain is improved from Friday but he still has quite a bit of discomfort in the right upper quadrant. Admitting labs: WBC 5.8 hemoglobin 11 platelet count 185,000 sodium 132 potassium 4.1 BUN 20 creatinine 0.95 total bilirubin 2.5 AST 342 ALT 462 alkaline phosphatase 228 amylase 286 lipase 2536. He had a CT of the abdomen and pelvis that reported CT findings support diagnosis of persistent acute edematous pancreatitis. Acute cholecystitis cannot be entirely excluded on CT. Consider HIDA scan follow-up based on clinical correlation. Ultrasound of the gallbladder was also completed that reported diet normal common bile duct, small dependent gallstones and/or gallbladder sludge without secondary ultrasound evidence for acute cholecystitis. Heterogeneously hyperechoic liver 10/17/2023 Patient seen and examined today as a follow-up. He states abdominal pain continues to improve. We were able to review some of his workup from hospital in [place]. He did have a gallbladder ultrasound there that reported findings suggestive of acute cholecystitis with dilation of CBD no definitive cho ledocholithiasis within the visualized CBD. Of note the distal CBD is not seen. He also had a CT of the abdomen and pelvis that reported liver grossly unremarkable gallbladder moderately distended with mild associated gallbladder wall thickening. No biliary tree dilation. Pancreas mildly heterogeneous with mild to moderate peripancreatic stranding and fluid. He also had elevated LFTs during that hospitalization 10/14/2023 total bilirubin was 6.3, AST 2356 ALT 1339 alkaline phosphatase 254 and lipase 1296. During this hospitalization his labs have continue to trend down. Awaiting today's lab results as well as MRCP which is scheduled for later this morning. Again he denies any nausea or vomiting he is currently n.p.o. but was tolerating clear liquid diet. Objective - Vital Signs Vital signs: Vital Signs Temp 98.6 F 10/17/23 01:00 Pulse 80 10/17/23 01:00 Resp 16 10/17/23 01:00 BP 131/74 10/17/23 01:00 Pulse Ox 96 10/17/23 01:00 FiO2 Intake & Output 10/16/23 10/16/23 10/17/23 06:59 18:59 06:59 Intake Total 1780 1200 Output Total 425 Balance -425 1780 1200 Weight 77.111 kg Intake: Intake, IV Titration 1200 1200 Amount Levofloxacin 500Mg-D5w 100 Pmx 500 mg In Dextrose/ Water 1 100ml.bag @ 100 mls/hr IVPB Q24H ELIJAH Rx#: [id number] Sodium Chloride 0.9% 1, 1100 1200 000 ml @ 100 mls/hr IV . Q10H ELIJAH Rx#:[id number] Oral 580 Output: Urine 425 Other: Voiding Method Toilet Toilet # Voids 2 3 - Exam General appearance: The patient is alert, oriented, appears in no acute distress. HET: Head is normocephalic and atraumatic. Conjunctiva pink. Sclera anicteric. Neck: Supple without lymphadenopathy. Abdomen: Soft, mild tenderness in the epigastric right upper quadrant region, nondistended. Extremities: Normal skin color and turgor. No pedal edema Skin: No rashes, no jaundice Neurological: No focal deficits. Alert and oriented. - Labs CBC & Chem 7: 10/17/23 05:10 10/17/23 05:10 Labs: Abnormal Lab Results - Last 24 Hours (Table) 10/16/23 10/16/23 Range/Units 05:17 05:17 RBC 3.80 L (4.40-5.60) X 10*6/uL Hgb 9.8 L (13.0-17.0) g/dL Hct 30.9 L (39.6-50.0) % MCH 25.8 L (27.0-32.0) pg MCHC 31.7 L (32.0-37.0) g/dL Lymphocytes # 0.54 L (0.90-5.00) X 10*3/uL Sodium 134 L (135-145) mmol/L Total Bilirubin 1.9 H (0.3-1.2) mg/dL AST 201 H (14-35) U/L ALT 371 H (10-49) U/L Alkaline Phosphatase 228 H (41-126) U/L Total Protein 5.2 L (6.2-8.2) g/dL Albumin 3.3 L (3.8-4.9) g/dL Amylase 201 H (23-121) U/L Lipase 450 H (14-60) U/L Assessment and Plan (1) Pancreatitis Narrative/Plan: 63-year-old presenting with elevated LFTs and amylase and lipase with right upper quadrant and epigastric pain. Initially seen in [place] and was told he had pancreatitis. He is unsure of his initial lab results however states he was told that he had pancreatitis but no gallstones. Looks like possibly a ga llstone pancreatitis labs are trending down. Patient likely may have passed stone. Will continue to trend LFTs. Treat symptomatically. Patient is scheduled for MRCP, will await those results for further recommendations. Continue with recommendations from general surgery. Continue to trend LFTs. Likely patient may have passed a gallstone and symptoms seem to be resolving and lab work improving. Current Visit: Yes Status: Acute Code(s): K85.90 - ACUTE PANCREATITIS WITHOUT NECROSIS OR INFECTION, UNSP SNOMED Code(s): 03668728 (2) Transaminitis Current Visit: Yes Status: Acute Code(s): R74.01 - ELEVATION OF LEVELS OF LIVER TRANSAMINASE LEVELS SNOMED Code(s): 958077223 Plan: 1. Continue symptomatic and supportive care 2. MRCP ordered and reviewed no evidence of choledocholithiasis, stricture, or biliary dilation 3. Patient may have clear liquid diet, advance as tolerated 4. No indication for any gastroenterology intervention 5. Continue with recommendations from general surgery Thank you for this consultation, we will sign off today. Gastroenterology will not be available through the weekend but will resume care on 10/20/2023. Dr. Jakub Ibrahim I agree with the dictator's note, documented as a scribe by Macy Soni.
--- NOTE | 2023-10-17 11:26 | MR ---
EXAMINATION: MRCP. DATE OF EXAMINATION: 10/17/2023. COMPARISON: CT abdomen and pelvis on 10/15/2023.. INDICATION: Transaminitis. PROCEDURE: Multiplanar, multisequence images of the abdomen were obtained without contrast. MRCP imag ing was also performed.. FINDINGS: Lung bases: Trace bilateral effusions.. ABDOMEN: Liver and Biliary system: Loss of signal intensity on the T1 out of phase images when compared to th e in phase images is compatible with fatty liver infiltration. A definitive focal liver lesion is not clearly identified.. Adrenal glands: Normal. Kidneys and ureters: Normal. Spleen: Normal. Pancreas: Findings of acute pancreatitis seen on the prior CT examination similar.. Gallbladder: The gallbladder is distended with some mild gallbladder wall thickening, however no sto alcon clearly identified.. Lymph nodes, Peritoneum and mesentery: There is no mesenteric or retroperitoneal lymphadenopathy. Gastrointestinal tract: No gross bowel abnormalities are seen.. Aorta/IVC: Aorta normal. No aortic aneurysm or dissection. IVC normal. Abdominal wall: Normal. BONES: There are no osseous destructive lesions.. ADDITIONAL SIGNIFICANT FINDINGS: None. IMPRESSION: 1. Acute pancreatitis. 2. Distended gallbladder with mild gallbladder wall thickening without gallstones. 3. Hepatic steatosis.
[2023-10-17] MEDS: ASPIRIN 81 MG PO SCH (13:37)
[2023-10-17] MEDS: ZINC SULFATE 220 MG CAP PO SCH (13:38)
--- NOTE | 2023-10-17 14:37 | P.PN ---
Subjective Progress Note Date: 10/17/23 CHIEF COMPLAINT: pancreatitis HISTORY OF PRESENT ILLNESS: Surgical service following in regards to gallstone pancreatitis. Patient continues to have some right upper quadrant abdominal pain but reports that it is improving. He denies any nausea or vomiting. He is complaining of constipation. Last bowel movement was Friday. He had MRCP today that reported acute pancreatitis. Distended gallbladder with mild gallbladder wall thickening without gallstones. Hepatic steatosis. Afebrile. WBC 8.40 Hgb 9.6 platelets 196 total bilirubin is down from 1.9-1.7 LFTs trending down. Alk phos did go up from 228-260 lipase 452 PHYSICAL EXAM: VITAL SIGNS: Reviewed. GENERAL: Well-developed in no acute distress. ABDOMEN: Soft. Nondistended. Tenderness right upper quadrant NEUROLOGIC: Alert and oriented. Cranial nerves II through XII grossly intact. ASSESSMENT: 1. Acute pancreatitis. Possible gallstone pancreatitis. No evidence of gallstones on MRCP 2. Elevated liver enzymes and total bilirubin trending down. Patient may have passed a gallstone PLAN: -Further recommendations forthcoming per surgeon -Continue antibiotics -Continue supportive care -Resume clear liquids Physician Shirt Sewer note has been reviewed by physician. Signing provider agrees with the documented findings, assessment, and plan of care. 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 Based on total visit time, I have performed more than 50% of the visit. As above: Patient says his pain is improved. Lipase remains elevated. Liver enzymes improved. MRCP shows no evidence of choledocholithiasis. Continue nora nding labs. Anticipate laparoscopic cholecystectomy either as outpatient back home in the [facility] where he recently had his hiatal hernia surgery or possibly next week here. May discharge over weekend if doing better and labs improved. Otherwise we will see on Friday. Objective - Vital Signs Vital signs: Vital Signs Temp 98.1 F 10/17/23 12:17 Pulse 65 10/17/23 12:17 Resp 16 10/17/23 12:17 BP 143/79 10/17/23 12:17 Pulse Ox 96 10/17/23 12:17 FiO2 Intake & Output 10/16/23 10/17/23 10/17/23 18:59 06:59 18:59 Intake Total 1780 1200 Balance 1780 1200 Intake: Intake, IV Titration 1200 1200 Amount Levofloxacin 500Mg-D5w 100 Pmx 500 mg In Dextrose/ Water 1 100ml.bag @ 100 mls/hr IVPB Q24H ELIJAH Rx#: [id number] Sodium Chloride 0.9% 1, 1100 1200 000 ml @ 100 mls/hr IV . Q10H ELIJAH Rx#:[id number] Oral 580 Other: Voiding Method Toilet # Voids 2 3 - Labs CBC & Chem 7: 10/17/23 05:10 10/17/23 05:10 Labs: Abnormal Lab Results - Last 24 Hours (Table) 10/17/23 10/17/23 Range/Units 05:10 05:10 RBC 3.72 L (4.40-5.60) X 10*6/uL Hgb 9.6 L (13.0-17.0) g/dL Hct 30.0 L (39.6-50.0) % MCH 25.8 L (27.0-32.0) pg Immature Gran # 0.05 H (0.00-0.04) X 10*3/uL Lymphocytes # 0.80 L (0.90-5.00) X 10*3/uL Monocytes # 1.04 H (0.20-1.00) X 10*3/uL BUN 7.5 L (9.0-27.0) mg/dL BUN/Creatinine Ratio 10.71 L (12.00-20.00) Ratio Calcium 8.6 L (8.7-10.3) mg/dL Total Bilirubin 1.7 H (0.3-1.2) mg/dL AST 74 H (14-35) U/L ALT 240 H (10-49) U/L Alkaline Phosphatase 260 H (41-126) U/L Total Protein 4.8 L (6.2-8.2) g/dL Albumin 3.0 L (3.8-4.9) g/dL Lipase 452 H (14-60) U/L
[2023-10-17] MEDS: HYDROmorphone 0.5 MG/0.5 ML SYRINGE IVP PRN (17:24)
[2023-10-17] MEDS: DOCUSATE 100 MG CAP PO SCH (20:30)
--- NOTE | 2023-10-18 05:48 | P.PN ---
Subjective Progress Note Date: 10/17/23 This is a 63-year-old male with medical history significant for 5 vessel CABG back in 2021, hypertension, prostate cancer with prostatectomy, hiatal hernia, patient is a never smoker reports rare alcohol use. Patient began having significant abdominal discomfort on Friday he was hospitalized in [place] where he was visiting for his grandsons hockey tournament. He did not want to continue with his medical treatment there and left the hospital to come back to the [place] for medical care he was en route to [facility] where the abdominal pain became too great so he stopped and came into the [facility] ER for further evaluation. He does have family that lives in the local area he is from the . His white blood cell count is normal at 5.8, hemoglobin 11.2, sodium 132, BUN of 20, creatinine 0.95. His bilirubin is elevated at 2.5 with elevation in his liver enzymes. Amylase is 286 and lipase is found to be 2536. Had a gallbladder ultrasound done showing suboptimal evaluation of pancreas there are small dependent gallstones and/or gallbladder sludge without secondary ultrasound evidence for acute cholecystitis. A follow-up abdominal pelvis CT is done revealing persistent acute edematous pancreatitis with acute cholecystitis cannot be entirely excluded on CT consider HIDA scan follow-up for based on clinical correlation. There is for a gallbladder stone in the bile duct although not much appreciated on imaging. Patient is scheduled to undergo an ERCP tomorrow once recovered from that he will undergoing cholecystectomy. Patient is currently evaluated on the medical floor he is reporting abdominal discomfort rated 3 out of 10 but much improved from admission. He is receiving supportive care. He does take aspirin and Plavix daily, aspirin will be continued for now and we will hold Plavix until patient is postoperative and cleared by general surgery. 10/17/2023 Patient is seen in follow-up this morning being followed by GI along with general surgery. Patient is currently n.p.o. and scheduled to undergo MRCP. General surgery following tentatively scheduled for laparoscopic cholecystectomy. Patient reports continued right upper quadrant tenderness and pain and reports being managed on current regimen. Labs are trending down, total bili is 1.7, AST 74, ALT 240, alk phos 260 which is mildly elevated, lipase is 452. Other labs within normal limits. Patient is afebrile with no reported chest pain or shortness of breath. Review of systems: Constitutional: No reports of fatigue, fever, or chills Cardiovascular: No reports of chest pain or palpitations Respiratory: No reports of shortness of breath or cough GI: No reports of nausea, vomiting, or diarrhea, reports continued right upper quadrant tenderness : No reports of dysuria or retention Neurovascular: No reports of weakness or numbness All medications have been reviewed PHYSICAL EXAMINATION: GENERAL: The patient is alert and oriented x3, not in any acute distress. Well developed, well nourished. HEENT: Pupils are round and equally reacting to light. EOMI. No scleral icterus. No conjunctival pallor. Normocephalic, atraumatic. No pharyngeal erythema. No thyromegaly. CARDIOVASCULAR: S1 and S2 present. No murmurs, rubs, or gallops. PULMONARY: Chest is clear to auscultation, no wheezing or crackles. ABDOMEN: Soft, nontender, nondistended, normoactive bowel sounds. No palpable organomegaly. MUSCULOSKELETAL: No joint swelling or deformity. EXTREMITIES: No cyanosis, clubbing, or pedal edema. NEUROLOGICAL: Gross neurological examination did not reveal any focal deficits. SKIN: No rashes. Assessment and plan Acute gallstone pancreatitis status post MRCP today which showed acute pancreatitis with a distended gallbladder with mild gallbladder wall thickening without gallstones as well as hepatic steatosis, total bili trending down as well as liver functions, patient may have possibly passed the stone History of 5 vessel coronary bypass back in 2021 maintained on aspirin and Plavix daily discussed with general surgery patient will be resumed on aspirin 81 mg daily and will be holding Plavix until patient is postoperative. Hypertension maintained on lisinopril and carvedilol which has been resumed History of prostate cancer with prostatectomy Hyperlipidemia Never smoker GI prophylaxis DVT prophylaxis Full Code Plan: Patient underwent MRCP as mentioned above with no gallstones noted. GI following with no further intervention noted and recommend continued monitoring with repeat labs in the a.m. there are no GI services over the weekend. Clear liquid diet being resumed General surgery following with no immediate plans for cholecystectomy and reported if labs are improving, likely surgical intervention outpatient near his home Repeat labs ordered AM. Resume aspirin, hold plavix. The impression and plan of care has been dictated by Kathie Hamilton, Nurse Practitioner as directed. Dr. Kareem MD I have performed a history and physical examination and medical decision making of this patient, discussed the same with the dictator, and agree with the dictators assessment and plan as written, documented as a scribe. Based on total visit time, I have performed more than 50% of this visit. Objective - Vital Signs Vital signs: Vital Signs Temp 98.8 F 10/18/23 00:44 Pulse 78 10/18/23 00:44 Resp 18 10/18/23 00:44 BP 151/83 10/18/23 00:44 Pulse Ox 96 10/18/23 00:44 FiO2 Intake & Output 10/17/23 10/17/23 10/18/23 06:59 18:59 06:59 Intake Total 1200 1200 Balance 1200 1200 Intake: Intake, IV Titration 1200 1200 Amount Levofloxacin 500Mg-D5w 100 Pmx 500 mg In Dextrose/ Water 1 100ml.bag @ 100 mls/hr IVPB Q24H ELIJAH Rx#: [id number] Sodium Chloride 0.9% 1, 1200 1100 000 ml @ 100 mls/hr IV . Q10H ELIJAH Rx#:[id number] Other: Voiding Method Toilet Toilet # Voids 3 2 - Labs CBC & Chem 7: 10/17/23 05:10 10/17/23 05:10 Labs: Abnormal Lab Results - Last 24 Hours (Table) 10/17/23 10/17/23 Range/Units 05:10 05:10 RBC 3.72 L (4.40-5.60) X 10*6/uL Hgb 9.6 L (13.0-17.0) g/dL Hct 30.0 L (39.6-50.0) % MCH 25.8 L (27.0-32.0) pg Immature Gran # 0.05 H (0.00-0.04) X 10*3/uL Lymphocytes # 0.80 L (0.90-5.00) X 10*3/uL Monocytes # 1.04 H (0.20-1.00) X 10*3/uL BUN 7.5 L (9.0-27.0) mg/dL BUN/Creatinine Ratio 10.71 L (12.00-20.00) Ratio Calcium 8.6 L (8.7-10.3) mg/dL Total Bilirubin 1.7 H (0.3-1.2) mg/dL AST 74 H (14-35) U/L ALT 240 H (10-49) U/L Alkaline Phosphatase 260 H (41-126) U/L Total Protein 4.8 L (6.2-8.2) g/dL Albumin 3.0 L (3.8-4.9) g/dL Lipase 452 H (14-60) U/L
[2023-10-18 08:44] VITALS: BP 171/86; PULSE 74; RESP 19; TEMP 98.2
[2023-10-18 09:42] LABS: Basophils # (A) 0.05 X 10*3/uL (0.00-0.10); Basophils % (A) 0.5 %; Eosinophils # (A) 0.17 X 10*3/uL (0.04-0.35); Eosinophils % (A) 1.6 %; HCT 29.1 % (39.6-50.0); HGB 9.5 g/dL (13.0-17.0); Lymphocytes # (A) 0.88 X 10*3/uL (0.90-5.00); Lymphocytes % (A) 8.4 %; MCH 26.2 pg (27.0-32.0); MCHC 32.6 g/dL (32.0-37.0); MCV 80.4 FL (80.0-97.0); Mean Platelet Volume 11.1 FL (9.5-12.2); Monocytes % (A) 14.2 %; NRBC Per 100 WBC 0 X 10*3/uL (0.00-0.01); Neutrophils % (A) 74.1 %; Platelet Count 207 X 10*3/uL (140-440); RBC 3.62 X 10*6/uL (4.40-5.60); RDW 14.3 % (11.5-14.5); WBC 10.53 X 10*3/uL (4.50-10.00)
[2023-10-18 10:09] LABS: ALT 182 U/L (10-49); AST 38 U/L (14-35); Albumin/Globulin Ratio 1.58 Ratio (1.60-3.17); Alkaline Phosphatase 230 U/L (41-126); Amylase 156 U/L (23-121); BUN/Creat Ratio 8.57 Ratio (12.00-20.00); Calcium 8.4 mg/dL (8.7-10.3); Carbon Dioxide 23.1 mmol/L (21.6-31.8); Chloride 103 mmol/L (96-109); Globulin 1.9 g/dL (1.6-3.3); Glucose 109 mg/dL (70-110); Magnesium 1.6 mg/dL (1.5-2.4); Potassium 3.5 mmol/L (3.5-5.5); Sodium 135 mmol/L (135-145); Total Bilirubin 1.3 mg/dL (0.3-1.2); Total Protein 4.9 g/dL (6.2-8.2)
[2023-10-18 10:21] LABS: Lipase 401 U/L (14-60)
--- NOTE | 2023-10-18 14:01 | P.PN ---
Subjective Progress Note Date: 10/18/23 Principal diagnosis: Gallstone pancreatitis Patient is feeling better. He is tolerating diet. Spoke with internal medicine. Okay for discharge with outpatient follow-up Objective - Vital Signs Vital signs: Vital Signs Temp 98.2 F 10/18/23 08:00 Pulse 74 10/18/23 08:50 Resp 19 10/18/23 08:50 BP 171/86 10/18/23 08:00 Pulse Ox 96 10/18/23 08:00 FiO2 Intake & Output 10/17/23 10/18/23 10/18/23 18:59 06:59 18:59 Intake Total 1200 Balance 1200 Intake: Intake, IV Titration 1200 Amount Levofloxacin 500Mg-D5w 100 Pmx 500 mg In Dextrose/ Water 1 100ml.bag @ 100 mls/hr IVPB Q24H ELIJAH Rx#: [id number] Sodium Chloride 0.9% 1, 1100 000 ml @ 100 mls/hr IV . Q10H ELIJAH Rx#:[id number] Other: Voiding Method Toilet Toilet # Voids 2 - EENT Eyes: Present: anicteric sclerae, PERRLA ENT: Present: hearing grossly normal Ears: bilateral: normal - Neck Neck: Present: normal ROM Thyroid: bilateral: normal size - Respiratory Respiratory: bilateral: CTA - Cardiovascular Rhythm: regular - Gastrointestinal General gastrointestinal: Present: normal bowel sounds. Absent: tenderness - Integumentary Integumentary: Present: normal. Absent: jaundiced - Neurologic Neurologic: Present: CNII-XII intact - Musculoskeletal Musculoskeletal: Present: gait normal - Psychiatric Psychiatric: Present: A&O x's 3 - Labs CBC & Chem 7: 10/18/23 05:59 10/18/23 05:59 Labs: Abnormal Lab Results - Last 24 Hours (Table) 10/18/23 10/18/23 Range/Units 05:59 05:59 WBC 10.53 H (4.50-10.00) X 10*3/uL RBC 3.62 L (4.40-5.60) X 10*6/uL Hgb 9.5 L (13.0-17.0) g/dL Hct 29.1 L (39.6-50.0) % MCH 26.2 L (27.0-32.0) pg Immature Gran # 0.13 H (0.00-0.04) X 10*3/uL Neutrophils # 7.80 H (1.80-7.70) X 10*3/uL Lymphocytes # 0.88 L (0.90-5.00) X 10*3/uL Monocytes # 1.50 H (0.20-1.00) X 10*3/uL BUN 6.0 L (9.0-27.0) mg/dL BUN/Creatinine Ratio 8.57 L (12.00-20.00) Ratio Calcium 8.4 L (8.7-10.3) mg/dL Total Bilirubin 1.3 H (0.3-1.2) mg/dL AST 38 H (14-35) U/L ALT 182 H (10-49) U/L Alkaline Phosphatase 230 H (41-126) U/L Total Protein 4.9 L (6.2-8.2) g/dL Albumin 3.0 L (3.8-4.9) g/dL Albumin/Globulin Ratio 1.58 L (1.60-3.17) Ratio Amylase 156 H (23-121) U/L Lipase 401 H (14-60) U/L - Imaging and Cardiology US - abdomen: report reviewed Assessment and Plan Assessment: Gallstone pancreatitis labs improved Plan okay for discharge and outpatient follow-up. Discussed with internal medicine.
--- NOTE | 2023-10-21 22:32 | P.DS ---
Providers Date of admission: 10/15/23 23:21 Attending physician: Case Coronado Consults: 10/15/23 23:41 Consult Physician Urgent Consulting Provider: Tosin Ibrahim Consult Reason/Comments: Pancreatitis Do you want consulting provider notified?: Yes 10/16/23 06:43 Consult Physician Routine Consulting Provider: Jerome Paz Consult Reason/Comments: gallstone pancreatitis Do you want consulting provider notified?: Yes Primary care physician: Stated None Hospital Course: Final Diagnosis Acute gallstone pancreatitis status post MRCP today which showed acute pancreatitis with a distended gallbladder with mild gallbladder wall thickening without gallstones as well as hepatic steatosis, total bili trending down as well as liver functions, patient may have possibly passed the stone History of 5 vessel coronary bypass back in 2021 maintained on aspirin and Plavix daily Hypertension maintained on lisinopril and carvedilol History of prostate cancer with prostatectomy Hyperlipidemia Never smoker GI prophylaxis DVT prophylaxis Full Code Discharge Disposition Patient is stable for discharge home patient has been up ambulating. He has no further reports of abdominal pain. Patient is sent home on 5 more days of oral levofloxacin 500 mg daily. Recommend to repeat labs in 2 to 3 days to monitor bilirubin and enzyme levels. Low fat diet until seen by [facility] until seen by Follow up with your PCP Dr. Kathie Deleon on Friday. Hospital Course This is a 63-year-old male with medical history significant for 5 vessel CABG back in 2021, hypertension, prostate cancer with prostatectomy, hiatal hernia, patient is a never smoker reports rare alcohol use. Patient began having significant abdominal discomfort on Friday he was hospitalized in [place] where he was visiting for his grandsons hockey tournament. He did not want to continue with his medical treatment there and left the hospital to come back to the [place] for medical care he was en route to [facility] where the abdominal pain became too great so he stopped and came into the [facility] ER for further evaluation. He does have family that lives in the local area he is from the . His white blood cell count is normal at 5.8, hemoglobin 11.2, sodium 132, BUN of 20, creatinine 0.95. His bilirubin is elevated at 2.5 with elevation in his liver enzymes. Amylase is 286 and lipase is found to be 2536. Had a gallbladder ultrasound done showing suboptimal evaluation of pancreas there are small dependent gallstones and/or gallbladder sludge without secondary ultrasound evidence for acute cholecystitis. A follow-up abdominal pelvis CT is done revealing persistent acute edematous pancreatitis with acute cholecystitis cannot be entirely excluded on CT consider HIDA scan follow-up for based on clinical correlation. There is for a gallbladder stone in the bile duct although not much appreciated on imaging. His aspirin and plavix were placed on hold pending possible surgical intervention. MRCP done showing acute pancreatitis; distended gallbladder with mild gallbladder wall thickening without gallstones. Hepatic steatosis. Patient was evaluated by surgery and cleared for discharge home to follow up with his family provider [place] and he will be set up to see a surgeon up there for further evaluation or intervention. His bilirubin is down to 1.3, LFTS improving. Lipase at 401 down from 2536. WBC 10.53, hemoglobin 9.5. He has no chest pain, no shortness of breath, no nausea vomiting or diarrhea. He has been up ambulating and tolerating diet. Reviewed Urine grew 2 40 eval sinusitis Please see medication reconciliation for a list of current medications. Thank you for allowing us to participate in the care of this patient. The impression and plan of care has been dictated by Sonia Fraga Nurse Practitioner as directed. Dr. Kareem MD I have performed a history and physical examination and medical decision making of this patient, discussed the same with the dictator, and agree with the dictators assessment and plan as written, documented as a scribe. Based on total visit time, I have performed more than 50% of this visit. Patient Condition at Discharge: Good Plan - Discharge Summary Discharge Rx Participant: No New Discharge Prescriptions: New Levofloxacin 500Mg-D5w Pmx [Levaquin 500Mg-D5w Pmx] 500 mg IVPB Q24H 5 Days #5 each Continue allopurinoL [Zyloprim] 100 mg PO DAILY Zinc Gluconate [Zinc] 50 mg PO DAILY Pantoprazole Sodium [Protonix] 40 mg PO BID Clopidogrel [Plavix] 75 mg PO DAILY Cetirizine HCl [Zyrtec] 10 mg PO DAILY Calcium Carbonate [Tums] 500 mg PO TID PRN PRN Reason: Gi Upset Rosuvastatin Calcium [Crestor] 40 mg PO HS lisinopriL [Zestril] 20 mg PO DAILY carvediloL [Coreg] 12.5 mg PO BID Aspirin EC [Ecotrin Low Dose] 81 mg PO DAILY Discharge Medication List Aspirin EC [Ecotrin Low Dose] 81 mg PO DAILY 10/16/23 [History] Calcium Carbonate [Tums] 500 mg PO TID PRN 10/16/23 [History] Cetirizine HCl [Zyrtec] 10 mg PO DAILY 10/16/23 [History] Clopidogrel [Plavix] 75 mg PO DAILY 10/16/23 [History] Pantoprazole Sodium [Protonix] 40 mg PO BID 10/16/23 [History] Rosuvastatin Calcium [Crestor] 40 mg PO HS 10/16/23 [History] Zinc Gluconate [Zinc] 50 mg PO DAILY 10/16/23 [History] allopurinoL [Zyloprim] 100 mg PO DAILY 10/16/23 [History] carvediloL [Coreg] 12.5 mg PO BID 10/16/23 [History] lisinopriL [Zestril] 20 mg PO DAILY 10/16/23 [History] Levofloxacin 500Mg-D5w Pmx [Levaquin 500Mg-D5w Pmx] 500 mg IVPB Q24H 5 Days #5 each 10/18/23 [Rx] Follow up Appointment(s)/Referral(s): None,Stated [Primary Care Provider] - 1-2 days Ambulatory/Diagnostic Orders: Basic Metabolic Panel [LAB.AMB] Location: None Selected Comprehensive Metabolic Panel [LAB.AMB] Time Frame: 3 Days, Location: None Selected Patient Instructions/Handouts: Pancreatitis (DC), Gallstones (DC) Activity/Diet/Wound Care/Special Instructions: Follow up with your PCP Dr. Kathie Deleon on Friday. Continue antibiotics for an additional 5 days. Recommend to repeat labs in 2 to 3 days to monitor bilirubin and enzyme levels. Low fat diet until seen by [facility] until seen by DRValente Discharge Disposition: HOME SELF-CARE
== END 2023-10-18 13:35 | disposition home or self-care (01) | DRG 440 ==
LOC: EC 19:53 → 5NMEDONC 23:21
PROVIDERS: ADMIT Hospitalist; ATTEND Hospitalist
DX: K85.10 Biliary acute pancreatitis without necrosis or infection (principal); I25.10 Atherosclerotic heart disease of native coronary artery without angina pectoris; Z95.1 Presence of aortocoronary bypass graft; E78.5 Hyperlipidemia, unspecified; K76.0 Fatty (change of) liver, not elsewhere classified; I10 Essential (primary) hypertension; Z79.899 Other long term (current) drug therapy; Z79.02 Long term (current) use of antithrombotics/antiplatelets; Z79.82 Long term (current) use of aspirin; Z85.46 Personal history of malignant neoplasm of prostate; Z95.5 Presence of coronary angioplasty implant and graft
CPT/HCPCS: 36415; 74177; 74181; 76705; 80053; 81001; 82150; 83605; 83690; 83735; 85025; 93005; 96361; 96374; 99285